=== PATIENT | female | born 1955 | race American Indian/Alaskan Native ===

== ENCOUNTER 2017-02-11 10:59 | Outpatient (CLI) | payer OTHER ==
--- NOTE | 2017-02-11 12:44 | XRay Report ---
RIGHT HAND, 2 views: History: Right hand pain. Borderline to mild osteopenia. There is no evidence for fracture, bone lesion or foreign body. 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 The fifth digit appears to be held in flexion on both views. This is likely a chronic finding. The remaining joint spaces are within normal limits for this persons age. IMPRESSION: No acute process. Mild osteopenia. Abnormal PIP joint, fifth digit, see above.
== END 2017-02-11 11:00 | disposition home or self-care (01) ==
LOC: XRAY 10:59
PROVIDERS: ATTEND Internal Medicine
DX: Z02.71 Encounter for disability determination (principal); M25.541 Pain in joints of right hand; M85.841 Other specified disorders of bone density and structure, right hand; M06.9 Rheumatoid arthritis, unspecified